=== PATIENT | male | born 1990 ===

== ENCOUNTER 2018-08-22 15:45 | Emergency (ER) | payer OTHER ==
[2018-08-22 16:12] VITALS: BP 146/88; PULSE 93; RESP 18; TEMP 99.3; O2SAT 98
[2018-08-22 17:24] LABS: URINE BILIRUBIN NEGATIVE (NEGATIVE); URINE BLOOD NEGATIVE (NEGATIVE); URINE CLARITY CLEAR (Clear); URINE COLOR YELLOW (YELLOW); URINE GLUCOSE (UA) NEG (NEGATIVE); URINE LEUKOCYTE ESTERASE NEG Leu/uL (Negative); URINE PROTEIN NEGATIVE (NEGATIVE); URINE UROBILINOGEN 0.2-1.0 mg/dL (0.2-1.0)
--- NOTE | 2018-08-22 17:49 | ED PDOC ---
HPI: Male Pain Time Seen by Provider: 08/22/18 16:16 Chief Complaint (Nursing): Male Genitourinary Chief Complaint (Provider): Penile Rash / Testicular Heaviness History Per: Patient History/Exam Limitations: no limitations Onset/Duration Of Symptoms: Intermittent Episodes (x7 months) Current Symptoms Are (Timing): Intermittent Episodes Additional Complaint(s): 28 year old male presents to the ED for evaluation of an intermittent brown rash to his penis associated with heaviness to bilateral testicles for the past seven months. Patient admits to participating in unprotected sex. Otherwise, denies penile discharge, dysuria, hematuria, and trauma. PMD: Peri Rubio Past Medical History Reviewed: Historical Data, Nursing Documentation, Vital Signs Vital Signs: Last Vital Signs Temp 99.3 F 08/22/18 16:08 Pulse 93 H 08/22/18 16:08 Resp 18 08/22/18 16:08 BP 146/88 08/22/18 16:08 Pulse Ox 98 08/22/18 16:08 - Medical History PMH: No Chronic Diseases - Surgical History Other surgeries: rhinoplasty - Family History Family History: States: Unknown Family Hx - Social History Current smoker - smoking cessation education provided: No Alcohol: None Drugs: Denies - Home Medications Home Medications: Ambulatory Orders Medication Instructions Recorded Naproxen [Naprosyn] 500 mg PO BID PRN #10 tab 08/22/18 - Allergies Allergies/Adverse Reactions: Allergies Allergy/AdvReac Type Severity Reaction Status Date / Time No Known Allergies Allergy Verified 08/22/18 16:09 Review of Systems ROS Statement: Except As Marked, All Systems Reviewed And Found Negative Genitourinary Male: Positive for: Rash (brown around penis), Other (heaviness to testicles). Negative for: Dysuria, Hematuria, Penile Discharge Physical Exam - Reviewed Nursing Documentation Reviewed: Yes Vital Signs Reviewed: Yes - Physical Exam Appears: Positive for: No Acute Distress Gastrointestinal/Abdominal: Positive for: Normal Exam, Soft. Negative for: Tenderness Male Genital Exam: Positive for: normal genitalia (uncircumcised). Negative for: inguinal tenderness (or lymphadenopathy), lesions, testicular tenderness (R) (or swelling), testicular tenderness (L) (or swelling) - Laboratory Results Lab Results: Urine Color Yellow (YELLOW) 08/22/18 17:05 Urine Clarity Clear (Clear) 08/22/18 17:05 Urine pH 6.0 (5.0-8.0) 08/22/18 17:05 Ur Specific [place] 1.025 (1.003-1.030) 08/22/18 17:05 Urine Protein Negative mg/dL (NEGATIVE) 08/22/18 17:05 Urine Glucose (UA) Neg mg/dL (NEGATIVE) 08/22/18 17:05 Urine Ketones Negative mg/dL (NEGATIVE) 08/22/18 17:05 Urine Blood Negative (NEGATIVE) 08/22/18 17:05 Urine Nitrate Negative (NEGATIVE) 08/22/18 17:05 Urine Bilirubin Negative (NEGATIVE) 08/22/18 17:05 Urine Urobilinogen 0.2-1.0 mg/dL (0.2-1.0) 08/22/18 17:05 Ur Leukocyte Esterase Neg Marry/uL (Negative) 08/22/18 17:05 Urine RBC (Auto) 1 /hpf (0-3) 08/22/18 17:05 Urine Microscopic WBC < 1 /hpf (0-5) 08/22/18 17:05 - ECG O2 Sat by Pulse Oximetry: 98 (RA) Pulse Ox Interpretation: Normal Medical Decision Making Medical Decision Making: Time: 1640 Initial Impression: intermittent genital heaviness and rash Initial Plan: --Chlamydia/GC RNA, TMA --Urinalysis --US testes duplex 1835 US FINDINGS: RIGHT TESTICLE: Measures 4.3 x 2.0 x 2.7 cm. Homogeneous echotexture. Blood flow is demonstrated. RIGHT EPIDIDYMIS: Unremarkable. LEFT TESTICLE: Measures 4.6 x 2.0 x 2.6 cm. Homogeneous echotexture. Blood flow is demonstrated. LEFT EPIDIDYMIS: Unremarkable. HYDROCELE: None. VARICOCELE: Small right-sided varicocele. OTHER FINDINGS: None. IMPRESSION: Small right-sided varicocele. Otherwise unremarkable study as above. Informed of results and pending cultures. Advised to f/u with urologist for further evaluation but is to return to ED immediately if symptoms worsen. Scribe Attestation: Documented by Jessica Paredes, acting as a scribe for Leonard Mcqueen PA-C. Provider Scribe Attestation: All medical record entries made by the Scribe were at my direction and personally dictated by me. I have reviewed the chart and agree that the record accurately reflects my personal performance of the history, physical exam, medical decision making, and the department course for this patient. I have also personally directed, reviewed, and agree with the discharge instructions and disposition. Disposition - Clinical Impression Clinical Impression: Varicocele - Patient ED Disposition Is Patient to be Admitted: No - Disposition Referrals: Jose Barlow MD [Medical Doctor] - [facility] [Outside] Disposition: Routine/Home Disposition Time: 18:40 Condition: STABLE Additional Instructions: FOLLOW UP WITH DR. BARLOW FOR FURTHER EVALUATION RETURN TO ED IMMEDIATELY IF SYMPTOMS WORSEN AMIE LUTZ, thank you for letting us take care of you today. Your provider was Fariba Braga MD and you were treated for GROIN PAIN. The emergency medical care you received today was directed at your acute symptoms. If you were prescribed any medication, please fill it and take as directed. It may take several days for your symptoms to resolve. Return to the Emergency Department if your symptoms worsen, do not improve, or if you have any other problems. Please contact your doctor or call one of the physicians/clinics you have been referred to that are listed on the Patient Visit Information form that is included in your discharge packet. Bring any paperwork you were given at discharge with you along with any medications you are taking to your follow up visit. Our treatment cannot replace ongoing medical care by a primary care provider outside of the emergency department. Thank you for allowing the [facility] team to be part of your care today. If you had an X-Ray or CT scan: A Radiologist will review the ED reading if any change in treatment is needed we will contact you. If you had a blood, urine, or wound culture: It will take several days for the results, if any change in treatment is needed we will contact you. If you had an STI test: It will take 48 hours for the results. Please call after 1 week if you have not heard back. Prescriptions: Naproxen [Naprosyn] 500 mg PO BID PRN #10 tab PRN Reason: Pain Instructions: Hydrocele/Varicocele (DC) Forms: [facility] (Kazakh) Print Language: EQUATORIAL GUINEAN
--- NOTE | 2018-08-22 18:38 | US ---
Date of service: 08/22/2018 HISTORY: TESTICULAR PAIN TECHNIQUE: Realtime sonography through the scrotum with color and doppler flow. COMPARISON: None Available. FINDINGS: RIGHT TESTICLE: Measures 4.3 x 2.0 x 2.7 cm. Homogeneous echotexture. Blood flow is demonstrated. RIGHT EPIDIDYMIS: Unremarkable. LEFT TESTICLE: Measures 4.6 x 2.0 x 2.6 cm. Homogeneous echotexture. Blood flow is demonstrated. LEFT EPIDIDYMIS: Unremarkable. HYDROCELE: None. VARICOCELE: Small right-sided varicocele. OTHER FINDINGS: None. IMPRESSION: Small right-sided varicocele. Otherwise unremarkable study as above.
== END 2018-08-22 19:28 | disposition home or self-care (01) ==
LOC: H.ER 15:45
DX: I86.1 Scrotal varices (principal)